=== PATIENT | male | born 1975 | race Caucasian/White ===

== ENCOUNTER 2017-02-27 19:49 | Emergency (ER) | payer BC, OTHER ==
[~2017-02-27] VITALS: Ht 177.8 cm; Wt 81.1 kg
[2017-02-27 20:00] VITALS: TEMP 36.8; Ht 177.8 cm; Wt 81.1 kg
[2017-02-27] MEDS ORDERED: ONDANSETRON INJ 2 MG/ML 2 ML VIAL IV STA (20:14)
[2017-02-27] MEDS ORDERED: MoRPHine SULFATE 4 MG/ML 1 ML CARP\\VIAL IV STA (20:14)
[2017-02-27 20:27] LABS: BASO % 0.2 %; BASO ABS # 0.04 K/uL (0-0.2); COMPLETE YES; EOS % 0.6 %; HEMATOCRIT 47.4 % (42-52); IG% 1.1 %; LYMPH % 7.5 %; LYMPH ABS # 1.52 K/uL (1.2-3.4); MEAN CELL VOLUME 89.6 fL (80-100); MEAN CORPUSCULAR HEMOGLOBIN 29.1 pg (25-34); MEAN CORPUSCULAR HGB CONC 32.5 g/dl (32-36); MEAN PLATELET VOLUME 10.7 fL (7.4-10.4); MONO % 5.3 %; NEUT % 85.3 %; PLATELET COUNT 253 K/uL (130-400); RED BLOOD COUNT 5.29 M/uL (4.7-6.1)
[2017-02-27] MEDS ORDERED: OPTIRAY 320 IV PRN (20:30)
[2017-02-27 20:35] LABS: ISTAT CREATININE 0.6 mg/dl (0.6-1.3); ISTAT HEMOGLOBIN 16.3 g/dl (14.0-18.0); ISTAT IONIZED CALCIUM 1.2 mmol/l (1.12-1.32)
[2017-02-27 20:38] LABS: INR 0.9 (0.9-1.1); PROTHROMBIN TIME (PATIENT) 9.9 SECONDS (9.0-12.0)
[2017-02-27 20:46] LABS: ALT/SGPT 29 U/L (12-78); AST/SGOT 20 U/L (15-37); BLOOD UREA NITROGEN 8 mg/dl (7-18); BUN/CREATININE RATIO 10.3 (10-20); CALCIUM 8.9 mg/dl (8.5-10.1); CARBON DIOXIDE 28 mmol/L (21-32); CHLORIDE 107 mmol/L (98-107); CREATININE 0.76 mg/dl (0.60-1.40); GLUCOSE 109 mg/dl (70-99); POTASSIUM 4.2 mmol/L (3.5-5.1); SODIUM 141 mmol/L (136-145)
[2017-02-27 20:50] LABS: ALKALINE PHOSPHATASE 99 U/L (45-117)
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
[2017-02-27] MEDS ORDERED: OXYC1TAB3 PO (21:41)
[2017-02-27] MEDS ORDERED: OXYCODONE IR HOME PACK PO ONE (21:45)
[2017-02-27] MEDS ORDERED: MoRPHine SULFATE 2 MG/ML CARP IV STA (21:50)
[2017-02-27 22:00] VITALS: BP 166/96; PULSE 80; O2SAT 97
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
== END 2017-02-27 22:18 | disposition home or self-care (01) ==
LOC: C.EDB 19:50
DX: S12.9XXA Fracture of neck, unspecified, initial encounter (principal); S22.32XA Fracture of one rib, left side, initial encounter for closed fracture; D72.829 Elevated white blood cell count, unspecified; V86.59XA Driver of other special all-terrain or other off-road motor vehicle injured in nontraffic accident, initial encounter; Z82.49 Family history of ischemic heart disease and other diseases of the circulatory system; F17.200 Nicotine dependence, unspecified, uncomplicated

== ENCOUNTER 2023-02-25 16:51 | Inpatient (IN) ==
[2023-02-25 17:23] LABS: Basophils # (auto) 0.07 K/uL (0-0.2); Basophils % (auto) 0.4 %; Eosinophils # (auto) 0.19 K/uL (0-0.50); Eosinophils % (auto) 1.2 %; Hematocrit (blood only) 50.6 % (42.0-52.0); Hemoglobin 17.4 g/dl (14.0-18.0); Immature Granulocytes # (auto) 0.23 K/uL (0.01-0.20); Immature Granulocytes % (auto) 1.5 %; Lymphocytes # (auto) 2.07 K/uL (1.2-3.4); Lymphocytes % (auto) 13.1 %; Mean Corpuscular Hemoglobin 30.1 pg (25.0-34.0); Mean Corpuscular Hgb Conc 34.4 g/dL (32.0-36.0); Mean Corpuscular Volume 87.4 fL (80.0-100.0); Mean Platelet Volume 10.9 fL (9.4-12.4); Monocytes # (auto) 1.31 K/uL (0.11-0.59); Monocytes % (auto) 8.3 %; Neutrophils # (auto) 11.91 K/uL (1.40-6.50); Neutrophils % (auto) 75.5 %; Platelet Count 239 K/uL (130-400); RDW Coefficient of Variation 12.7 % (11.5-14.5); RDW Standard Deviation 40.7 fL (36.4-46.3); Red Blood Count 5.79 M/uL (4.70-6.10); White Blood Count 15.78 K/ul (4.8-10.8)
[2023-02-25 17:38] LABS: Albumin Globulin Ratio 1.4 (0.9-2); Albumin Level 4.4 gm/dl (3.4-5.0); BUN Creatinine Ratio 9.1 (10-20); Bilirubin,Total 0.6 mg/dl (0.2-1.0); Calcium 10.3 mg/dl (8.6-10.3); Creatinine Clr Calc Pharmacy 123.9 ml/min; Est GFR (African American) 119.4 ml/min; Globulin 3.2 gm/dl (2.5-4.0); Potassium 3.8 mmol/L (3.5-5.1); Total Protein 7.6 gm/dl (6.0-8.3)
--- NOTE | 2023-02-25 17:59 | Emergency Department Note ---
Impression & Plan Diverticulitis, Leukocytosis, Abscess of abdominal cavity ED Provider Note NAME: BETY ROSARIO AGE: 47 SEX: M : 1975 ARRIVES VIA: Walk-In INFORMANT: Patient ED PROVIDER(S): Mehrdad Alfaro DO CHIEF COMPLAINT: abdominal pain HPI: Patient is a 47-year-old male who presents ER for left lower quadrant abdominal pain which started 1 week ago. Denies any headache or change in vision. No chest pain or shortness of breath. Pain is worse with twisting, turning, and bending. Laying flat does improve the pain and movement makes it worse. He notes he has had epiploic appendagitis before and it feels similar but different. No previous abdominal surgeries. PAST MEDICAL HISTORY:See Below PAST SURGICAL HISTORY:See Below FAMILY HISTORY:See Below SOCIAL HISTORY:See Below HOME MEDICATIONS:See Below ALLERGIES:See Below VITALS:See Below PHYSICAL EXAMINATION: GENERAL: Sitting up in bed, alert, well appearing, well nourished, no distress, non-toxic EYE EXAM: normal conjunctiva. OROPHARYNX: no exudate, no erythema, lips, buccal mucosa, and tongue normal and mucous membranes are moist NECK: supple, no nuchal rigidity, no adenopathy, non-tender LUNGS: Clear to auscultation. Normal chest wall mechanics HEART: no murmurs, S1 normal and S2 normal ABDOMEN: abdomen soft, TTP in LLQ, normo-active bowel sounds, no masses, no rebound or guarding. UPPER EXTREMITIES: upper extremities are grossly normal. LOWER EXTREMITIES: No pitting edema. NEURO EXAM: Normal sensorium, cranial nerves II-XII grossly intact, normal speech, no gross weakness of arms, no gross weakness of legs. MEDICAL DECISION MAKING: Patient is a 47-year-old male who presents ER for left lower quadrant abdominal pain. IV was established blood work was obtained. External records were reviewed. Labs show leukocytosis of 15,000. No significant anemia. BMP with LFTs bilirubin lipase is unremarkable. UA was clean. COVID-negative. CT abdomen pelvis shows diverticulitis with a 3 x 1.6 cm abscess in the left lower quadrant. Discussed with Dr. Nance and he notes that this is not amenable to IR due to the small size. Discussed with the hospitalist Dr. Travis for admission and further evaluation. Patient was given fluids, morphine and Zosyn. Patient was updated bedside. Also discussed with Dr. Pedroza from general surgery and again she recommends admission to the hospitalist and they will follow. Triage Nursing notes reviewed. Limited review of prior medical records performed Vital Signs: reviewed and remarkable for no significant abnormalities Differential diagnosis: Differential diagnoses includes but is not limited to gastritis, peptic ulcer disease, GERD, gallbladder disease, pancreatitis, small bowel obstruction, appendicitis, diverticulitis, hernia, urinary tract infection, torsion, /ectopic (if female), perforation, trauma, infectious. ER treatment provided: See below Diagnostics interpreted by me include EKG and cardiac monitoring as listed below: -Cardiac Monitoring: An order was placed for continuous cardiac monitoring. The monitor shows a rate of 90 with sinus rhythm. -ECG: none -Laboratory studies:Interpreted by me as stated above in MDM and shown below. Imaging studies: Xrays: As interpreted by me:none CTs show: CT abdomen pelvis shows diverticulitis with a abscess CT abdomen pelvis per my read shows inflammation in the left lower quadrant Consultation(s): As described in MDM Procedures:none Critical Care: None Past Med/Surg History Medical History Hypertension Personal history of retained foreign body fully removed piece of metal in right hand removed Surgical History Hx of tooth extraction upper teeth removed Hx of wisdom tooth extraction Family History Father Diabetes Mother Diabetes Sister Colon cancer Social History Smoking Status: Current every day smoker Tobacco Type: Cigarettes Cigarettes Per Day: 1-2 per day; Second Hand Exposure: No; Do You Dip or Chew Tobacco: No; Hx Alcohol Use: Yes Alcohol type: beer Hx Substance Use: No Preferred Language: Telugu Communication Ability: Effective Block Mechanic Required: No Beliefs That Will Affect Care: None Current Living Situation: Family and Significant Other Current Living Situation Comment: S/O and 2 children Feels Safe at Home: Yes Assistive Devices: Contacts and Denture - Upper Allergies Allergies Allergy/AdvReac Type Severity Reaction Status Date / Time No Known Allergies Allergy Mild Verified 02/25/23 20:17 Home Meds Home Medications Medication Instructions Recorded Confirmed amlodipine 5 mg tablet 5 mg PO QPM 07/01/22 02/25/23 Results & Data (ED) Vital Signs Vital Signs - 24 hr 02/25/23 16:55 02/25/23 20:17 02/25/23 20:23 Temperature 36.4 C L 36.8 C Temperature Source Skin Oral Pulse Rate 112 H 97 H Pulse Rate [Right Finger] 98 H Respiratory Rate 20 18 Respiratory Effort / Characteristics Non-Labored Spontaneous Non-Labored Spontaneous Respiratory Depth Normal Normal Respiratory Pattern Regular Regular Blood Pressure 165/99 H Blood Pressure [Left Arm] 145/94 H Blood Pressure Mean 121 Blood Pressure Mean [Left Arm] 111 Blood Pressure Position [Left Arm] Lying Pulse Oximetry 95 95 Oxygen Delivery Method Room Air Room Air Sepsis Recent Fever Within 48 Hours No Sepsis New/Unexplained Change in Mental Status N/A Sepsis Action Taken by Nursing No Action Required 02/25/23 22:24 Temperature 36.6 C Temperature Source Oral Pulse Rate Pulse Rate [Right Finger] 90 Respiratory Rate 18 Respiratory Effort / Characteristics Non-Labored Spontaneous Respiratory Depth Respiratory Pattern Blood Pressure Blood Pressure [Left Arm] 144/77 H Blood Pressure Mean Blood Pressure Mean [Left Arm] 99 Blood Pressure Position [Left Arm] Lying Pulse Oximetry 95 Oxygen Delivery Method Room Air Sepsis Recent Fever Within 48 Hours Sepsis New/Unexplained Change in Mental Status Sepsis Action Taken by Nursing Laboratory Data 02/25/23 17:03 02/25/23 17:03 Lab Results 02/25/23 02/25/23 02/25/23 Range/Units 17:03 17:03 18:49 WBC 15.78 H (4.8-10.8) K/ul RBC 5.79 (4.70-6.10) M/uL Hgb 17.4 (14.0-18.0) g/dl Hct 50.6 (42.0-52.0) % MCV 87.4 (80.0-100.0) fL MCH 30.1 (25.0-34.0) pg MCHC 34.4 (32.0-36.0) g/dL RDW Std Deviation 40.7 (36.4-46.3) fL RDW Coeff of Ebar 12.7 (11.5-14.5) % Plt Count 239 (130-400) K/uL MPV 10.9 (9.4-12.4) fL Immature Gran % (Auto) 1.5 % Neut % (Auto) 75.5 % Lymph % (Auto) 13.1 % [place] % (Auto) 8.3 % Eos % (Auto) 1.2 % Baso % (Auto) 0.4 % Neut # (Auto) 11.91 H (1.40-6.50) K/uL Lymph # (Auto) 2.07 (1.2-3.4) K/uL [place] # (Auto) 1.31 H (0.11-0.59) K/uL Eos # (Auto) 0.19 (0-0.50) K/uL Baso # (Auto) 0.07 (0-0.2) K/uL Immature Gran # (Auto) 0.23 H (0.01-0.20) K/uL Sodium 136 (136-145) mmol/L Potassium 3.8 (3.5-5.1) mmol/L Chloride 104 (98-107) mmol/L Carbon Dioxide 24 (21-32) mmol/L Anion Gap 8 (3-11) BUN 8 (6-23) mg/dl Creatinine 0.88 (0.6-1.4) mg/dl Est Cr Clr Drug Dosing 123.9 ml/min Est GFR ( Amer) 119.4 ml/min Est GFR (Non-Af Amer) 103.0 ml/min BUN/Creatinine Ratio 9.1 L (10-20) Glucose 112 H (70-99(Fasting)) mg/dl Calcium 10.3 (8.6-10.3) mg/dl Total Bilirubin 0.6 (0.2-1.0) mg/dl AST 13 (13-39) U/L ALT 28 (7-52) U/L Alkaline Phosphatase 89 (34-104) U/L Total Protein 7.6 (6.0-8.3) gm/dl Albumin 4.4 (3.4-5.0) gm/dl Globulin 3.2 (2.5-4.0) gm/dl Albumin/Globulin Ratio 1.4 (0.9-2) Lipase 18 (11-82) U/L Urine Color Dark Yellow Urine Appearance Clear (Clear) Urine pH 6.0 (4.5-7.5) Ur Specific [place] 1.024 (1.000-1.030) Urine Protein Negative (Negative) Urine Glucose (UA) Negative (Negative) Urine Ketones Trace H (Negative) Urine Blood Negative (Negative) Urine Nitrite Negative (Negative) Urine Bilirubin Negative (Negative) Urine Urobilinogen Negative (Negative) Ur Leukocyte Esterase Negative (Negative) SARS-CoV-2, RNA, NAAT (NEGATIVE) 02/25/23 Range/Units 20:27 WBC (4.8-10.8) K/ul RBC (4.70-6.10) M/uL Hgb (14.0-18.0) g/dl Hct (42.0-52.0) % MCV (80.0-100.0) fL MCH (25.0-34.0) pg MCHC (32.0-36.0) g/dL RDW Std Deviation (36.4-46.3) fL RDW Coeff of Bear (11.5-14.5) % Plt Count (130-400) K/uL MPV (9.4-12.4) fL Immature Gran % (Auto) % Neut % (Auto) % Lymph % (Auto) % [place] % (Auto) % Eos % (Auto) % Baso % (Auto) % Neut # (Auto) (1.40-6.50) K/uL Lymph # (Auto) (1.2-3.4) K/uL [place] # (Auto) (0.11-0.59) K/uL Eos # (Auto) (0-0.50) K/uL Baso # (Auto) (0-0.2) K/uL Immature Gran # (Auto) (0.01-0.20) K/uL Sodium (136-145) mmol/L Potassium (3.5-5.1) mmol/L Chloride (98-107) mmol/L Carbon Dioxide (21-32) mmol/L Anion Gap (3-11) BUN (6-23) mg/dl Creatinine (0.6-1.4) mg/dl Est Cr Clr Drug Dosing ml/min Est GFR ( Amer) ml/min Est GFR (Non-Af Amer) ml/min BUN/Creatinine Ratio (10-20) Glucose (70-99(Fasting)) mg/dl Calcium (8.6-10.3) mg/dl Total Bilirubin (0.2-1.0) mg/dl AST (13-39) U/L ALT (7-52) U/L Alkaline Phosphatase (34-104) U/L Total Protein (6.0-8.3) gm/dl Albumin (3.4-5.0) gm/dl Globulin (2.5-4.0) gm/dl Albumin/Globulin Ratio (0.9-2) Lipase (11-82) U/L Urine Color Urine Appearance (Clear) Urine pH (4.5-7.5) Ur Specific [place] (1.000-1.030) Urine Protein (Negative) Urine Glucose (UA) (Negative) Urine Ketones (Negative) Urine Blood (Negative) Urine Nitrite (Negative) Urine Bilirubin (Negative) Urine Urobilinogen (Negative) Ur Leukocyte Esterase (Negative) SARS-CoV-2, RNA, NAAT NEGATIVE (NEGATIVE) Administered Medications Discontinued Medications Piperacillin Sod/Tazobactam Sod (Zosyn) 4.5 gm in 120 mls @ 240 mls/hr IV NOW ONE Stop: 02/25/23 20:27 Last Admin: 02/25/23 20:19 Dose: 240 mls/hr Documented By: SG Sodium Chloride (Nss 1000ml) 2,000 mls @ 999 mls/hr IV .Q2H1M ONE Stop: 02/25/23 22:07 Last Admin: 02/25/23 20:19 Dose: 999 mls/hr Documented By: SG Ioversol (Optiray 320 100ml) 94 ml IV ONCE ONE Stop: 02/25/23 19:00 Last Admin: 02/25/23 18:59 Dose: 94 ml Documented By: EDK Morphine Sulfate (Morphine Sulfate 10 Mg/Ml Carp/Vial) 6 mg IV NOW STA Stop: 02/25/23 19:59 Last Admin: 02/25/23 20:19 Dose: 6 mg Documented By: SG Imaging Data Radiologist's Impression: Abdomen/Pelvis CT 02/25/23 17:[address] WITH IV CONTRAST CT DOSE: 1091.77 mGy.cm HISTORY: Left lower quadrant abdominal pain. TECHNIQUE: Multiaxial CT images of the abdomen and pelvis were performed following the use of intravenous contrast. A dose lowering technique was utilized adhering to the principles of ALARA. COMPARISON STUDY: Abdomen and pelvis CT 06/03/2022. FINDINGS: The lung bases are clear. No acute fractures identified. There is a tiny fat-containing umbilical hernia. Hepatic steatosis again noted. There are 2 subcentimeter hypodense lesions within the left hepatic lobe. These are technically too small to characterize but favor cysts. The gallbladder, pancreas, spleen, and adrenal glands are unremarkable. The main portal vein is patent. Normal caliber abdominal aorta. No retroperitoneal or pelvic lymphadenopathy. A 3 mm hypodense lesion within the upper pole of the right kidney is also too small to characterize but statistically represents a cyst. The left kidney enhances normally. No hydronephrosis. Normal bladder. Trace pelvic free fluid. Focal thickening within the proximal to mid sigmoid colon with pericolonic fat stranding consistent with an acute diverticulitis. There is also a small focus of extraluminal gas and fluid adjacent to the area of thickened sigmoid colon best seen on image 294. This measures approximately 3.0 x 1.6 cm and is consistent with a small developing pericolonic abscess. This is not amenable to percutaneous drainage at this time. Multiple additional colonic diverticula are noted. No dilated loops of bowel to suggest an obstruction. Normal appendix. IMPRESSION: 1. Acute sigmoid diverticulitis with a 3.0 x 1.6 cm developing pericolonic abscess. 2. Follow-up colonoscopy should be considered once the diverticulitis has resolved to exclude the less likely possibility of an underlying colonic lesion. 3. Mild hepatic steatosis. ACT 112: Negative or not required by law. Electronically signed by: Ghassan Brooks M.D. 02/25/2023 7:38 PM Discharge Plan Visit Data Chief Complaint: Abdominal Pain Stated Complaint: ABDOMINAL PAIN ED Provider: Mehrdad Alfaro Discharge Problem: Diverticulitis, Leukocytosis, Abscess of abdominal cavity Forms Stand Alone Forms: My [facility] [employer] Prescriptions Prescriptions: No Action amlodipine 5 mg Tablet 5 mg PO QPM Referrals Referrals: Casandra Cm MD [Primary Care Provider] -
[2023-02-25] MEDS ORDERED: OPTIRAY 320 500ml IV ONE (18:58)
[2023-02-25] MEDS ORDERED: OPTIRAY 320 100ml IV ONE (18:59)
[2023-02-25 19:23] LABS: Appearance Urine Clear (Clear); Bilirubin Urine Negative (Negative); Blood Urine Negative (Negative); Color Urine Dark Yellow; Glucose Urine UA Negative (Negative); Ketones Urine Trace (Negative); Leukocyte Esterase Urine Negative (Negative); Nitrite Urine Negative (Negative); Protein Urine Negative (Negative); Specific Gravity Urine 1.024 (1.000-1.030); Urobilinogen Urine Negative (Negative)
--- NOTE | 2023-02-25 19:40 | CT Scan Report ---
ABDOMEN AND PELVIS CT WITH IV CONTRAST CT DOSE: 1091.77 mGy.cm HISTORY: Left lower quadrant abdominal pain. TECHNIQUE: Multiaxial CT images of the abdomen and pelvis were performed following the use of intrave nous contrast. A dose lowering technique was utilized adhering to the principles of ALARA. COMPARISON STUDY: Abdomen and pelvis CT 06/03/2022. FINDINGS: The lung bases are clear. No acute fractures identified. There is a tiny fat-containing umb ilical hernia. Hepatic steatosis again noted. There are 2 subcentimeter hypodense lesions within the left hepatic lobe. These are technically too small to characterize but favor cysts. The gallbladder, pancreas, spleen, and adrenal glands are unremarkable. The main portal vein is patent. Normal caliber abdominal aorta. No retroperitoneal or pelvic lymphadenopathy. A 3 mm hypodense lesion within the up per pole of the right kidney is also too small to characterize but statistically represents a cyst. T he left kidney enhances normally. No hydronephrosis. Normal bladder. Trace pelvic free fluid. Focal t hickening within the proximal to mid sigmoid colon with pericolonic fat stranding consistent with an acute diverticulitis. There is also a small focus of extraluminal gas and fluid adjacent to the area of thickened sigmoid colon best seen on image 294. This measures approximately 3.0 x 1.6 cm and is co nsistent with a small developing pericolonic abscess. This is not amenable to percutaneous drainage a t this time. Multiple additional colonic diverticula are noted. No dilated loops of bowel to suggest an obstruction. Normal appendix. IMPRESSION: 1. Acute sigmoid diverticulitis with a 3.0 x 1.6 cm developing pericolonic abscess. 2. Follow-up colonoscopy should be considered once the diverticulitis has resolved to exclude the les s likely possibility of an underlying colonic lesion. 3. Mild hepatic steatosis. ACT 112: Negative or not required by law. Electronically signed by: Ghassan Brooks M.D. 02/25/2023 7:38 PM
[2023-02-25] MEDS ORDERED: MoRPHine SULFATE 10 MG/ML CARP/VIAL IV STA (19:58)
[2023-02-25] MEDS ORDERED: PIPERACILLIN/TAZOBACTAM 4.5 GM/120 ML BAG IV ONE (19:58)
[2023-02-25] MEDS ORDERED: SODIUM CHLORIDE 0.9% 1000ML 2,000 ML IV ONE (20:07)
--- NOTE | 2023-02-25 21:16 | Surgery Consultation ---
This case was discussed with the surgical PA. I agreed with the plan. Date of Consultation February 25, 2023 Assessment & Plan (1) Diverticulitis: The patient is being admitted on the hospitalist service. From a surgical perspective we recommend proceeding as follows: Provide analgesics Provide antiemetics Provide IV fluid for hydration Provide antibiotics. Zosyn has been initiated by the treating emergency room physician and would recommend continuing this antibiotic. Implement n.p.o. status. I do feel be acceptable for patient to have an occasional ice chip for comfort. I discussed with the patient the rationale for bowel rest. I did discuss with him the consideration will be given to advancing his diet, beginning with clear liquids, once his abdominal exam improves and he has improved bowel function. Follow serial labs I discussed the above conservative treatment plan with the patient. I did discuss with him that would be preferable to avoid an emergency operation and this would most likely require a colostomy. I discussed with him that we would like to cool his infection off and if surgery is to be considered in the future would be preferable if he would have an up-to-date colonoscopy and an adequate bowel prep prior to doing so. I did discuss with him also that he may not require surgical intervention at any point as this is the first episode of diverticulitis. Repeat imaging can be considered if patient shows signs of clinical deterioration Appropriate DVT prophylaxis can be initiated. We will defer this to the admitting service. Additional recommendations be forthcoming based on his clinical course as unfolds History of Present Illness Reason for Consultation: Diverticulitis History of Present Illness This is a 47-year-old male who presented to the emergency department secondary to abdominal pain. The patient notes that he has been having pain which is greatest in the left lower quadrant for approximately 1 week. He notes that over the past week the pain has begun to spread across his lower abdomen in a bandlike fashion. He denies any other mitigating factors concerning his pain. He has had nausea without vomiting and notes a poor appetite. He has felt feverish but admits he did not take his temperature and he has had some occasional sweats and chills. He notes that he has never had abdominal surgery in the past and he has never had issues with diverticulitis in the past. The patient has had a colonoscopy in the past, most recently in July 2022. This procedure revealed a 2 mm polyp which was removed. He was also noted to have nonbleeding internal hemorrhoids. There is no comment on any diverticular disease on the study. Which independent reviewed. CT scan of the abdomen pelvis showed that patient had acute sigmoid diverticulitis with a 3.0 x 1.6 cm developing pericolonic abscess. The interpreting radiologist felt that this was not amendable to any type of percutaneous drainage at the current time. There is no evidence of bowel obstruction or appendicitis. Labs included a CBC her white blood cell count was elevated at 15.7. Hemoglobin, hematocrit, and platelet count were normal. Chemistry profile showed sodium, potassium, BUN, and creatinine were normal. Urinalysis was not indicative of infection and a COVID test was negative. At the time of my interview the patient was resting comfortably in bed he was in no distress. Allergies Allergy/AdvReac Type Severity Reaction Status Date / Time No Known Allergies Allergy Mild Verified 02/25/23 20:17 Home Medications Medication Instructions Recorded Confirmed Type amlodipine 5 mg tablet 5 mg PO QPM 07/01/22 02/25/23 History Patient History Medical History Hypertension Personal history of retained foreign body fully removed piece of metal in right hand removed Surgical History Hx of tooth extraction upper teeth removed Hx of wisdom tooth extraction Family History Father Diabetes Mother Diabetes Sister Colon cancer Social History Smoking Status: Current every day smoker Tobacco Type: Cigarettes Cigarettes Per Day: 1-2 per day; Second Hand Exposure: No; Do You Dip or Chew Tobacco: No; Hx Alcohol Use: Yes Alcohol type: beer Hx Substance Use: No Preferred Language: Azeri Communication Ability: Effective Business Programmer Required: No Beliefs That Will Affect Care: None Current Living Situation: Family and Significant Other Current Living Situation Comment: S/O and 2 children Feels Safe at Home: Yes Assistive Devices: Contacts and Denture - Upper Review of Systems Constitutional: + fever (Subjective) and + chills Ear, Nose, Mouth, Throat: see below and no ear pain Respiratory: no cough and no dyspnea Cardiovascular: no chest pain Gastrointestinal: as per Subjective / HPI Genitourinary: no dysuria Musculoskeletal: no back pain Integumentary: no rash Neurologic: no localized weakness Physical Exam Constitutional: WD/WN, vitals as above Eyes: no conjunctival abnormality ENMT: Ears: no hearing impairment and no external ear abnormality Mouth: no oropharynx abnormality Neck: trachea midline Respiratory: normal respiratory effort, lungs clear to auscultation Cardiovascular: Rate/Rhythm: regular rate and regular rhythm Vessels: dorsalis pedis pulses present and radial pulses present Gastrointestinal (Abdomen): Abdomen is soft and nonrigid. There is minimal distention. Bowel sounds are hypoactive. Patient did have pain with palpation which is greatest in the left lower quadrant with some slight rebound tenderness. Musculoskeletal: No calf tenderness Skin: no rashes Neurologic: moves all extremities Psychiatric: A+Ox3, euthymic affect Results & Data Vital Signs (Past 12 Hours) Vital Signs Temp Pulse Pulse Resp BP BP Pulse Ox 02/25/23 20:23 97 H 02/25/23 20:17 36.8 C 98 H 18 145/94 H 95 02/25/23 16:55 36.4 C L 112 H 20 165/99 H 95 O2 Del Method 02/25/23 20:23 02/25/23 20:17 Room Air 02/25/23 16:55 Room Air PG Care Time/CCT Total # of Minutes Spent Total Time Spent with Patient: Total time spent is greater than 50% in coordination of care (as documented) at patient's floor/unit and/or counseling patient: Coding Level of Care Code 10753 IN/OBS CONSULT LVL 5,80M Diagnoses Diverticulitis K57.92
--- NOTE | 2023-02-25 22:26 | History & Physical Report ---
Date of Service February 25, 2023 Assessment & Plan (1) Diverticulitis: Plan: -Acute sigmoid diverticulitis, complicated by pericolonic abscess 3.0 x 1.6 cm -Per radiology, not amenable to percutaneous drainage at present -Currently hemodynamically stable, not meeting SIRS criteria on admission -IVF- LR 125 cc/hr -Pain control- Toradol PRN, morphine PRN -Zofran PRN -Continue Zosyn at present -Serial abdominal exams, advance diet as tolerated -Trend CBC, BMP -General surgery consulted, recommendations appreciated -Continue conservative management at present (2) Hypertension: Plan: -BP stable at present, suspect mild elevation driven by abdominal pain -Holding home amlodipine for NPO status (3) Constipation: Plan: -Avoiding laxatives at present due to acute diverticulitis -Consider initiation of bowel regimen as pt's acute flare resolves Plan FENGI: NPO except sips/chips Code status: Full DVT ppx: SCDs Isolation: None Dispo: Medical/surgical History of Present Illness Chief Complaint: Abdominal pain Primary Care Provider: Casandra Cm MD Pt is 47 yo M with significant FMH of diverticulitis, PMH colonic polyp, HTN presenting with abdominal pain. Pt reports onset of LLQ abdominal pain 1 week prior which has spread across abdomen to RLQ and worsened in severity since onset. Associated nausea without emesis, though reduced PO intake. Reports subjective fevers and chills. States he has not had a BM in over 1 week. He does report history of diverticulitis in multiple family members and did have colonic polyp removed on colonoscopy in 07/2022. Pt arrived to ER hemodynamically stable. Initial evaluation significant for WBC 16, CTAP with sigmoid diverticulitis and noted 3.0 x 1.6 cm pericolonic abscess. ER interventions include Zosyn, morphine 6 mg IV, 1L NSS bolus x2. At present, pt reports ongoing abdominal pain with some relief from PRN medication. Denies any other complaints. Allergies Allergy/AdvReac Type Severity Reaction Status Date / Time No Known Allergies Allergy Mild Verified 02/25/23 20:17 Home Medications Medication Instructions Recorded Confirmed Type amlodipine 5 mg tablet 5 mg PO QPM 07/01/22 02/25/23 History Past Med/Surg History Medical History (Updated 02/25/23 @ 22:37 by Georgia Bose MD) Hypertension Personal history of retained foreign body fully removed piece of metal in right hand removed Surgical History Hx of tooth extraction upper teeth removed Hx of wisdom tooth extraction Family History Father Diabetes Mother Diabetes Sister Colon cancer Social History Smoking Status: Current every day smoker Tobacco Type: Cigarettes Cigarettes Per Day: 1-2 per day; Second Hand Exposure: No; Do You Dip or Chew Tobacco: No; Hx Alcohol Use: Yes Alcohol type: beer Hx Substance Use: No Preferred Language: Zambian Communication Ability: Effective Lip Cutter And Scorer Required: No Beliefs That Will Affect Care: None Current Living Situation: Family and Significant Other Current Living Situation Comment: S/O and 2 children Feels Safe at Home: Yes Assistive Devices: Contacts and Denture - Upper Review of Systems Review of Systems: Per HPI Physical Exam Physical Exam: General: well-appearing, no acute distress HEENT: PERRL, EOMI, conjunctivae clear without injection, anicteric sclerae, moist mucous membranes, clear oropharynx without exudate or erythema Neck: supple, trachea midline, no thyromegaly, no JVD, no cervical lymphadenopathy CV: RRR, normal S1 and S2, no murmurs Resp: CTAB, no increased work of breathing, no crackles or wheezes Abd: Soft, +tender from RLQ/infraumbilical and LLQ (greatest), nondistended, no guarding or rebound, no hepatosplenomegaly, normal bowel sounds MSK: Normal bulk of all four extremities Neuro: AOx3, no focal motor or sensory deficits Skin: no rashes or lesions, warm and dry Ext: no LE peripheral edema or erythema, capillary refill <2s in all four extremities, 2+ LE peripheral pulses b/l Results & Data Results & Data Vital Signs (Past 12 Hours) Vital Signs Temp Pulse Pulse Resp BP BP Pulse Ox 02/25/23 22:24 36.6 C 90 18 144/77 H 95 02/25/23 20:23 97 H 02/25/23 20:17 36.8 C 98 H 18 145/94 H 95 02/25/23 16:55 36.4 C L 112 H 20 165/99 H 95 O2 Del Method 02/25/23 22:24 Room Air 02/25/23 20:23 02/25/23 20:17 Room Air 02/25/23 16:55 Room Air Code Status & VTE Plan VTE Prophylaxis Plan VTE Prophylaxis will be ordered: Yes Resident Activity Tracking Resident Involvement: Resident Care Provided Care Provided: Adult Hospital Medicine
[2023-02-25] MEDS ORDERED: ONDANSETRON INJ 2 MG/ML 2 ML VIAL IV PRN (23:46)
[2023-02-26] MEDS: MoRPHine SULFATE 2 MG/ML CARP IV PRN ×3 (00:30→14:46)
[2023-02-26] MEDS: LACTATED RINGER'S 1,000 ML IV SCH ×3 (00:30→16:09)
[2023-02-26] MEDS: PIPERACILLIN/TAZOBACTAM 4.5 GM in DEXTROSE 5% 100 ML IV SCH ×3 (01:46→17:36)
--- NOTE | 2023-02-26 06:09 | Surgery Progress Note ---
I have seen and examined this patient with the surgical PA this am. He does not have a surgical abdomen, his leukocytosis is resolving and he is afebrile. I agree with the plan. Date of Service February 26, 2023 Assessment & Plan (1) Diverticulitis: Plan: Patient has been admitted on the hospitalist service. From a surgical perspective we recommend continuing plan as follows: Continue analgesics Continue antiemetics Continue broad-spectrum antibiotics in the form of Zosyn Continue n.p.o. status. I discussed with the patient that consideration be given to advancing his diet beginning with clear liquids once he has improvement of his abdominal exam and improvement of his bowel function. Encourage ambulation Check a.m. labs when available Admission and Anticipated Discharge Date Admission Date: February 25, 2023 Subjective Patient is resting in bed at the time of my interview. He notes that since admission he feels about the same. He continues to have left lower quadrant pain. He has not had any nausea or vomiting since admission. He is passing a small amount of flatus but is not had any bowel movement. He does note that he feels hungry. He has not had any fevers but has had some occasional sweats. Physical Exam Gastrointestinal (Abdomen): Bowel sounds are hypoactive. Patient's abdomen is soft and nonrigid. Patient does have pain with palpation in the left lower quadrant. Results & Data Vital Signs (Past 12 Hours) Vital Signs Temp Pulse Pulse Resp BP Pulse Ox O2 Del Method 02/25/23 23:37 16 02/25/23 23:54 36.5 C 99 H 18 154/77 H 94 Room Air 02/25/23 22:24 36.6 C 90 18 144/77 H 95 Room Air 02/25/23 20:23 97 H 02/25/23 20:17 36.8 C 98 H 18 145/94 H 95 Room Air PG Care Time/CCT Total # of Minutes Spent Total Time Spent with Patient: Total time spent is greater than 50% in coordination of care (as documented) at patient's floor/unit and/or counseling patient: Coding Level of Care Code 17385 SUB INP/OBS CARE Diagnoses Diverticulitis K57.92
[2023-02-26] MEDS: KETOROLAC TROMETHAMINE 15 MG/ML VIAL IV PRN ×2 (06:22→16:12)
--- NOTE | 2023-02-26 06:58 | Electrocardiogram Report ---
Test Reason : Blood Pressure : / mmHG Vent. Rate : 102 BPM Atrial Rate : 102 BPM P-R Int : 172 ms QRS Dur : 086 ms QT Int : 324 ms P-R-T Axes : 039 005 036 degrees QTc Int : 422 ms Sinus tachycardia Poor R wave progression, consider anterior AL vs. lead placement vs. LVH Otherwise normal ECG When compared with ECG of 29-JUN-2020 15:59, No significant change was found Confirmed by Calixto Fleming ([id number]) on 02/26/2023 6:57:52 AM Referred By: REFERRED SELF Confirmed By:Tong Fleming
[2023-02-26 07:37] LABS: Basophils # (auto) 0.04 K/uL (0-0.2); Basophils % (auto) 0.3 %; Eosinophils # (auto) 0.15 K/uL (0-0.50); Eosinophils % (auto) 1.1 %; Hematocrit (blood only) 44.1 % (42.0-52.0); Immature Granulocytes # (auto) 0.08 K/uL (0.01-0.20); Immature Granulocytes % (auto) 0.6 %; Lymphocytes # (auto) 1.31 K/uL (1.2-3.4); Lymphocytes % (auto) 9.7 %; Mean Corpuscular Hemoglobin 29.7 pg (25.0-34.0); Mean Corpuscular Volume 87.3 fL (80.0-100.0); Mean Platelet Volume 11.4 fL (9.4-12.4); Monocytes # (auto) 1.63 K/uL (0.11-0.59); Monocytes % (auto) 12.1 %; Neutrophils # (auto) 10.23 K/uL (1.40-6.50); Neutrophils % (auto) 76.2 %; Platelet Count 220 K/uL (130-400); RDW Coefficient of Variation 12.8 % (11.5-14.5); RDW Standard Deviation 40.9 fL (36.4-46.3); Red Blood Count 5.05 M/uL (4.70-6.10); White Blood Count 13.44 K/ul (4.8-10.8)
[2023-02-26 07:45] LABS: BUN Creatinine Ratio 9.4 (10-20); Calcium 9.2 mg/dl (8.6-10.3); Creatinine Clr Calc Pharmacy 129.2 ml/min; Est GFR (African American) 121.1 ml/min; Est GFR (Non-African American) 104.5 ml/min; Potassium 3.7 mmol/L (3.5-5.1)
--- NOTE | 2023-02-26 07:47 | Hospitalist Progress Note ---
Date of Service February 26, 2023 Assessment & Plan (1) Diverticulitis: Plan: -Acute sigmoid diverticulitis, complicated by pericolonic abscess 3.0 x 1.6 cm, will need outpaitwent f/u with GI with consideration for repat -Per radiology, not amenable to percutaneous drainage at present - colonoscopy 07/2022 with 2mm polyp sigmoid colon -Currently hemodynamically stable, not meeting SIRS criteria on admission -IVF- LR 125 cc/hr -Pain control- Toradol PRN, morphine PRN -Zofran PRN -Continue Zosyn -Serial abdominal exams, advance diet as tolerated -Trend CBC, BMP -General surgery consulted, recommendations appreciated -Continue conservative management at present (2) Hypertension: Plan: -Well controlled -Holding home amlodipine for NPO status (3) Constipation: Plan: -Avoiding laxatives at present due to acute diverticulitis -Consider initiation of bowel regimen as pt's acute flare resolves Plan FENGI: NPO except sips/chips Code status: Full DVT ppx: SCDs Isolation: None Admission and Anticipated Discharge Date Admission Date: February 25, 2023 Supervising Physician Co-Signing Physician Notes ATTESTATION I also saw the patient and confirmed brock portions of the history and exam. I agree with the impression and plan in the resident documentation, and as summarized below. 47-year-old male admitted yesterday with acute sigmoid diverticulitis. No prior history of diverticulitis previously. Fairly recent colonoscopy completed 07/11/2022 demonstrated one small 2 mm polyp (pathology shows hyperplastic) in the sigmoid colon; no mention made of diverticulosis. Since admission, had some increased pain this morning that was relieved with morphine. Still no appetite. He has ice hips at bedside. EXAM 136/80, 84, 20, 36.7, 90% room air Alert and oriented. No distress. Heart regular Lungs clear with nonlabored respirations Abdomen soft, left lower quadrant tenderness without rebound or guarding DATA Labs White blood cell count 13.44, hemoglobin 15 Sodium 136, potassium 3.7, BUN 8, creatinine 0.[address] scan, pleated 02/25/2023 demonstrates acute sigmoid diverticulitis with a 3.0 x 1.6 cm developing pericolonic abscess. Pathology Sigmoid polyp collected 07/11/2022 demonstrates a hyperplastic polyp IMPRESSION & PLAN Acute sigmoid diverticulitis with pericolonic abscess Appreciate surgical consultation Continue empiric antibiotics IV fluids, ice chips, n.p.o. otherwise Additional per resident documentation Subjective Mark was in significant pain when I saw him this morning. States pain is the pain from when he came in. LLQ. No bowel movement in about a week. Review of Systems Review of Systems: As per above Physical Exam Physical Exam: Constitutional: well-appearing, no acute distress HEENT: NCAT, no conjunctival injection CV: regular rhythm, no murmur appreciated, extremities well-perfused, no LE edema Resp: CTABL, no wheezes/rales/rhonchi appreciated, no increased work of breathing GI: soft, nondistended, tender, worst in LLQ, BS normoactive, no rebound or guarding MSK: no gross deformities appreciated Skin: warm, dry, no rash appreciated Neuro: alert, oriented, no focal neurologic deficit appreciated Results & Data Results & Data Vital Signs (Past 12 Hours) Vital Signs Temp Pulse Pulse Resp BP Pulse Ox O2 Del Method 02/26/23 07:10 36.7 C 71 16 124/74 94 Room Air 02/25/23 23:37 16 02/25/23 23:54 36.5 C 99 H 18 154/77 H 94 Room Air 02/25/23 22:24 36.6 C 90 18 144/77 H 95 Room Air 02/25/23 20:23 97 H 02/25/23 20:17 36.8 C 98 H 18 145/94 H 95 Room Air Resident Activity Tracking Resident Involvement: Resident Care Provided Care Provided: Adult Hospital Medicine
[2023-02-26] MEDS ORDERED: MoRPHine SULFATE 2 MG/ML CARP IV STA (08:43)
[2023-02-26] MEDS: ENOXAPARIN INJ 40 MG/0.4 ML SYR SQ SCH (17:36)
[2023-02-27] MEDS: PIPERACILLIN/TAZOBACTAM 4.5 GM in DEXTROSE 5% 100 ML IV SCH ×2 (01:16→10:22)
[2023-02-27] MEDS: LACTATED RINGER'S 1,000 ML IV SCH ×2 (01:29→10:22)
--- NOTE | 2023-02-27 08:16 | Surgery Progress Note ---
I have seen and examined this patient and discussed this case with the surgical PA. I agree with the plan. He may start on clears today. We will F/U labs in the am. Date of Service February 27, 2023 Assessment & Plan (1) Diverticulitis: Plan: Patient here with diverticulitis with abscess Labs are pending this AM. Vitals are stable and patient afebrile Abdomen is soft with improving LLQ ttp. He is passing flatus If WBC continues to downtrend okay to advance to clears today Continue IV abx while in house and supportive care No acute surgical intervention indicated at this time, will follow Admission and Anticipated Discharge Date Admission Date: February 25, 2023 Subjective Patient reports feeling better and pain improving. He is passing flatus. No BM yet. No nausea/vomiting. Reports hunger Physical Exam Physical Exam: awake/alert, sitting up in chair Constitutional: no acute distress Gastrointestinal (Abdomen): Inspection/Auscultation: abdomen not distended Percussion/Palpation: + abdomen tender (improving LLQ ttp) and abdomen soft Results & Data Vital Signs (Past 12 Hours) Vital Signs Temp Pulse Resp BP Pulse Ox O2 Del Method 02/27/23 08:00 Room Air 02/27/23 07:43 37.1 C 84 16 142/84 H 95 Room Air 02/26/23 21:49 36.9 C 83 18 143/73 H 95 Room Air PG Care Time/CCT Total # of Minutes Spent Total Time Spent with Patient: Total time spent is greater than 50% in coordination of care (as documented) at patient's floor/unit and/or counseling patient: Coding Level of Care Code 05485 SUB INP/OBS CARE 11/02MIN Diagnoses Diverticulitis K57.92
[2023-02-27 09:26] LABS: Basophils # (auto) 0.05 K/uL (0-0.2); Basophils % (auto) 0.4 %; Eosinophils # (auto) 0.12 K/uL (0-0.50); Eosinophils % (auto) 1.1 %; Hematocrit (blood only) 46.1 % (42.0-52.0); Hemoglobin 15.6 g/dl (14.0-18.0); Immature Granulocytes # (auto) 0.12 K/uL (0.01-0.20); Immature Granulocytes % (auto) 1.1 %; Lymphocytes # (auto) 1.27 K/uL (1.2-3.4); Lymphocytes % (auto) 11.2 %; Mean Corpuscular Hemoglobin 29.9 pg (25.0-34.0); Mean Corpuscular Hgb Conc 33.8 g/dL (32.0-36.0); Mean Corpuscular Volume 88.5 fL (80.0-100.0); Mean Platelet Volume 10.9 fL (9.4-12.4); Monocytes # (auto) 0.86 K/uL (0.11-0.59); Monocytes % (auto) 7.6 %; Neutrophils # (auto) 8.92 K/uL (1.40-6.50); Neutrophils % (auto) 78.6 %; Platelet Count 242 K/uL (130-400); RDW Coefficient of Variation 12.5 % (11.5-14.5); RDW Standard Deviation 40.9 fL (36.4-46.3); Red Blood Count 5.21 M/uL (4.70-6.10); White Blood Count 11.34 K/ul (4.8-10.8)
[2023-02-27 09:59] LABS: Calcium 9.2 mg/dl (8.6-10.3); Creatinine Clr Calc Pharmacy 137.3 ml/min; Est GFR (African American) 124.2 ml/min; Est GFR (Non-African American) 107.1 ml/min; Potassium 3.6 mmol/L (3.5-5.1)
--- NOTE | 2023-02-27 12:37 | Hospitalist Progress Note ---
Date of Service February 27, 2023 Assessment & Plan (1) Diverticulitis: Plan: -Patient here with 1x1.6 cm pericolonic abscess due to sigmoid diverticulitis -WBC is downtrending, at 11.34 down from 13.44. -Vitals are stable and patient afebrile -Abdomen is soft with improving LLQ to palpation; passing flatus -Advance to clear diet today -Continue IV abx, analgesics, and antiemetics as needed -IV fluids at 125 cc/hr -No acute surgical intervention indicated at this time, general surgery will follow. Appreciate recommendations. (2) Hypertension: Plan: -Well controlled -Add home amlodipine (3) Constipation: Plan: -Avoiding laxatives at present due to acute diverticulitis -Consider initiation of bowel regimen as patient's acute flare resolves (4) Colon cancer screening: Plan: -last colonoscopy in Fall 2021. -Consider colonoscopy on resolution of diverticulitis symptoms. Plan FENGI: Clear liquids Code status: Full DVT ppx: SCDs Isolation: None Admission and Anticipated Discharge Date Admission Date: February 25, 2023 Supervising Physician Co-Signing Physician Notes I personally examined the patient and verified all brock points of history and exam, discussed case, and agree with decision making with Eloisa SAVAGE. Feeling better. Tolerating coffee okay. Pain much better than whenever he came in. Vitals noted, in general he is awake and alert pleasant no distress. HEENT normocephalic atraumatic mucous membranes moist. Abdomen is soft mild left lower quadrant tenderness no guarding rebound or rigidity. Diverticulitis with abscessfortunately seems to be improving on antibiotics. Advance to full liquids, continue conservative care with antibiotics, serial exams, time. Fortunately right now does not appear to require surgery. Otherwise as above Subjective Mark is feeling better and feels that his pain is improving. He is passing flatus. No bowel movements. No nausea/vomiting. Patient has increased appetite today. Physical Exam Physical Exam: awake/alert, sitting up in bed Constitutional: healthy appearing; no acute distress Eyes: no conjunctival abnormality ENMT: Ears: no hearing impairment and no external ear abnormality Mouth: no oropharynx abnormality Neck: trachea midline Respiratory: normal respiratory effort, lungs clear to auscultation Cardiovascular: Rate/Rhythm: regular rate and regular rhythm Vessels: dorsalis pedis pulses present and radial pulses present Gastrointestinal (Abdomen): Inspection/Auscultation: abdomen not distended Percussion/Palpation: + abdomen tender (LLQ pain to palpation) and abdomen soft Skin: no rashes Neurologic: moves all extremities Psychiatric: A+Ox3, euthymic affect Results & Data Results & Data Vital Signs (Past 12 Hours) Vital Signs Temp Pulse Resp BP Pulse Ox O2 Del Method 02/27/23 08:00 Room Air 02/27/23 07:43 37.1 C 84 16 142/84 H 95 Room Air
[2023-02-27] MEDS: ENOXAPARIN INJ 40 MG/0.4 ML SYR SQ SCH (17:24)
[2023-02-27] MEDS: AMPICILLIN/SULBACTAM SOD 3,000 MG in 0.9 % SODIUM CHLORIDE 100 ML IV SCH ×2 (17:26→23:29)
--- NOTE | 2023-02-27 19:04 | Billing Data ---
Date of Service February 27, 2023 Coding Level of Care Code 90294 SUB INP/OBS CARE
[2023-02-28] MEDS: AMPICILLIN/SULBACTAM SOD 3,000 MG in 0.9 % SODIUM CHLORIDE 100 ML IV SCH ×4 (05:33→22:35)
[2023-02-28 07:08] LABS: Basophils # (auto) 0.06 K/uL (0-0.2); Basophils % (auto) 0.5 %; Eosinophils # (auto) 0.15 K/uL (0-0.50); Eosinophils % (auto) 1.1 %; Hematocrit (blood only) 42.9 % (42.0-52.0); Immature Granulocytes # (auto) 0.12 K/uL (0.01-0.20); Immature Granulocytes % (auto) 0.9 %; Lymphocytes % (auto) 9.8 %; Mean Corpuscular Hemoglobin 30.2 pg (25.0-34.0); Mean Corpuscular Volume 86.5 fL (80.0-100.0); Mean Platelet Volume 10.8 fL (9.4-12.4); Monocytes # (auto) 1.56 K/uL (0.11-0.59); Monocytes % (auto) 11.8 %; Neutrophils # (auto) 10.06 K/uL (1.40-6.50); Neutrophils % (auto) 75.9 %; Platelet Count 233 K/uL (130-400); RDW Coefficient of Variation 12.5 % (11.5-14.5); RDW Standard Deviation 39.8 fL (36.4-46.3); Red Blood Count 4.96 M/uL (4.70-6.10); White Blood Count 13.25 K/ul (4.8-10.8)
[2023-02-28 07:29] LABS: BUN Creatinine Ratio 6.3 (10-20); Calcium 9.5 mg/dl (8.6-10.3); Creatinine Clr Calc Pharmacy 137.3 ml/min; Est GFR (African American) 124.2 ml/min; Est GFR (Non-African American) 107.1 ml/min; Potassium 3.9 mmol/L (3.5-5.1)
--- NOTE | 2023-02-28 08:16 | Hospitalist Progress Note ---
Date of Service February 28, 2023 Assessment & Plan (1) Diverticulitis: Plan: -Patient here with 1x1.6 cm pericolonic abscess due to sigmoid diverticulitis -WBC at 13.25 today, up from 11.34 yesterday but holding -Vitals are stable and patient afebrile -Abdomen is soft with improving LLQ to palpation; passing flatus and stool -Advance to solid diet for dinner today -Continue IV abx, analgesics, and antiemetics as needed -No acute surgical intervention indicated at this time, general surgery will follow. Appreciate recommendations. (2) Hypertension: Plan: -Continue home amlodipine (3) Constipation: Plan: -Avoiding laxatives at present due to acute diverticulitis -Consider initiation of bowel regimen as patient's acute flare resolves as patient reports chronic constipation Plan FENGI: Clear liquids Code status: Full DVT ppx: lovenox Isolation: None Admission and Anticipated Discharge Date Admission Date: February 25, 2023 Supervising Physician Co-Signing Physician Notes I personally examined the patient and verified all brock points of history and exam, discussed case, and agree with decision making with Eloisa Hwang MS2. Continues to feel better overall. Did have a little bit of loose stools. Eating liquid diet without any significant pain or problemsdoes have some intermittent crampy abdominal pain but does not relate to eating, it is not severe, and is very short-lived. Overall feels much better than whenever he came in. Vitals noted, in general he is awake and alert pleasant no distress. HEENT normocephalic atraumatic mucous membranes moist. Abdomen is soft mild distention at worst, left very lower almost suprapubic tenderness only no guarding rebound or rigidity, abdomen much softer and I can palpate much deeper than yesterday. Diverticulitis with abscessfortunately overall improving on antibiotics. Tolerating diet. Continue conservative care, antibiotics, serial exams. Discussed ongoing care even after out of the hospital. Discussed being off work for now, offered to complete paperwork if needed. Otherwise as above. Subjective Mark feels that his abdominal pain is improved from yesterday. Has had about 15 bowel movements in the last 12 hours and feels some minor bloating and cramping. Stool is mostly liquid. No nausea/vomiting. Patient still has an appetite. Review of Systems Review of Systems: All systems reviewed & are unremarkable except as noted in HPI & below Physical Exam Physical Exam: Constitutional: No acute distress. HEENT: Moist mucous membranes. CV: Regular rate and rhythm, no murmurs/rubs/gallops. Resp: Lungs clear to auscultation bilaterally, no wheezes/rales/rhonchi appreciated, no increased work of breathing GI: soft, nondistended, mild LLQ tenderness Neuro: alert and oriented x3 Results & Data Results & Data Vital Signs (Past 12 Hours) Vital Signs Temp Pulse Resp BP Pulse Ox O2 Del Method 02/28/23 08:06 36.7 C 77 16 139/91 97 Room Air 02/27/23 21:00 37.3 C 86 16 152/82 H 94 Room Air
--- NOTE | 2023-02-28 10:56 | Surgery Progress Note ---
This patient was seen and examined with the surgical PA. Remains HD stable, afebrile. He denies any abdominal pain and can only illicit discomfort with deep palpation. Denies N/V, tolerating clears, passing gas and started having loose bowel movements yesterday. Will F/U am labs Date of Service February 28, 2023 Assessment & Plan (1) Diverticulitis: Plan Patient here with diverticulitis with abscess WBC up a little from yesterday 13(11). Vitals are stable and patient afebrile Abdomen is soft with stable LLQ/suprapubic discomfort. He is passing flatus along with loose stools Likely continue on clear liquids today yet and will f/u on WBC tomorrow AM Continue IV abx while in house and supportive care No acute surgical intervention indicated at this time, will follow Admission and Anticipated Discharge Date Admission Date: February 25, 2023 Subjective Patient still with LLQ pain that is stable from yesterday. He is tolerating clears without nausea/vomiting, notices some rumbling in lower abdomen when drinking. He is passing flatus along with loose stools. Physical Exam Physical Exam: awake/alert, no distress Respiratory: normal respiratory effort Gastrointestinal (Abdomen): Inspection/Auscultation: abdomen not distended Percussion/Palpation: + abdomen tender (some LLQ/suprapubic discomfort noted to palpation) and abdomen soft Results & Data Vital Signs (Past 12 Hours) Vital Signs Temp Pulse Resp BP Pulse Ox O2 Del Method 02/28/23 08:06 36.7 C 77 16 139/91 97 Room Air PG Care Time/CCT Total # of Minutes Spent Total Time Spent with Patient: Total time spent is greater than 50% in coordination of care (as documented) at patient's floor/unit and/or counseling patient: Coding Level of Care Code 78612 SUB INP/OBS CARE 11/02MIN Diagnoses Diverticulitis K57.92
[2023-02-28] MEDS: ENOXAPARIN INJ 40 MG/0.4 ML SYR SQ SCH (17:46)
--- NOTE | 2023-02-28 18:16 | Billing Data ---
Date of Service February 28, 2023 Coding Level of Care Code 43100 SUB INP/OBS CARE
[2023-03-01] MEDS: AMPICILLIN/SULBACTAM SOD 3,000 MG in 0.9 % SODIUM CHLORIDE 100 ML IV SCH ×2 (05:12→12:20)
[2023-03-01 08:23] LABS: Basophils # (auto) 0.05 K/uL (0-0.2); Basophils % (auto) 0.5 %; Eosinophils # (auto) 0.16 K/uL (0-0.50); Eosinophils % (auto) 1.4 %; Hematocrit (blood only) 44.9 % (42.0-52.0); Hemoglobin 15.2 g/dl (14.0-18.0); Immature Granulocytes # (auto) 0.11 K/uL (0.01-0.20); Lymphocytes # (auto) 1.52 K/uL (1.2-3.4); Lymphocytes % (auto) 13.8 %; Mean Corpuscular Hemoglobin 29.9 pg (25.0-34.0); Mean Corpuscular Hgb Conc 33.9 g/dL (32.0-36.0); Mean Corpuscular Volume 88.4 fL (80.0-100.0); Mean Platelet Volume 11.1 fL (9.4-12.4); Monocytes # (auto) 1.23 K/uL (0.11-0.59); Monocytes % (auto) 11.1 %; Neutrophils # (auto) 7.98 K/uL (1.40-6.50); Neutrophils % (auto) 72.2 %; Platelet Count 243 K/uL (130-400); RDW Coefficient of Variation 12.5 % (11.5-14.5); RDW Standard Deviation 41.1 fL (36.4-46.3); Red Blood Count 5.08 M/uL (4.70-6.10); White Blood Count 11.05 K/ul (4.8-10.8)
[2023-03-01 08:37] LABS: BUN Creatinine Ratio 6.3 (10-20); Calcium 9.6 mg/dl (8.6-10.3); Est GFR (African American) 124.8 ml/min; Est GFR (Non-African American) 107.7 ml/min; Potassium 3.6 mmol/L (3.5-5.1)
--- NOTE | 2023-03-01 08:41 | Discharge Summary ---
Date of Service March 01, 2023 Admission HPI Per Admitting Provider Pt is 47 yo M with significant FMH of diverticulitis, PMH colonic polyp, HTN presenting with abdominal pain. Pt reports onset of LLQ abdominal pain 1 week prior which has spread across abdomen to RLQ and worsened in severity since onset. Associated nausea without emesis, though reduced PO intake. Reports subjective fevers and chills. States he has not had a BM in over 1 week. He does report history of diverticulitis in multiple family members and did have colonic polyp removed on colonoscopy in 07/2022. Pt arrived to ER hemodynamically stable. Initial evaluation significant for WBC 16, CTAP with sigmoid diverticulitis and noted 3.0 x 1.6 cm pericolonic abscess. ER interventions include Zosyn, morphine 6 mg IV, 1L NSS bolus x2. At present, pt reports ongoing abdominal pain with some relief from PRN medication. Denies any other complaints. Admission Exam Per Admitting Provider General: well-appearing, no acute distress HEENT: PERRL, EOMI, conjunctivae clear without injection, anicteric sclerae, moist mucous membranes, clear oropharynx without exudate or erythema Neck: supple, trachea midline, no thyromegaly, no JVD, no cervical lymphadenopathy CV: RRR, normal S1 and S2, no murmurs Resp: CTAB, no increased work of breathing, no crackles or wheezes Abd: Soft, +tender from RLQ/infraumbilical and LLQ (greatest), nondistended, no guarding or rebound, no hepatosplenomegaly, normal bowel sounds MSK: Normal bulk of all four extremities Neuro: AOx3, no focal motor or sensory deficits Skin: no rashes or lesions, warm and dry Ext: no LE peripheral edema or erythema, capillary refill <2s in all four extremities, 2+ LE peripheral pulses b/l Principal Diagnosis diverticulitis with abscess Discharge Exam Constitutional: No acute distress. HEENT: Moist mucous membranes. CV: Regular rate and rhythm, no murmurs/rubs/gallops. Resp: Lungs clear to auscultation bilaterally, no wheezes, rales, rhonchi. No increased work of breathing GI: soft, nondistended, mild mid-LLQ tenderness to palpation. No rebound or guarding. Neuro: alert and oriented to person, place, and time Discharge Data Allergies Allergy/AdvReac Type Severity Reaction Status Date / Time No Known Allergies Allergy Mild Verified 02/25/23 20:17 Consultations 02/25/23 20:07 ED Decision to Admit Stat Ordered Studies Abdomen/Pelvis CT 02/25/23 17:[address] WITH IV CONTRAST CT DOSE: 1091.77 mGy.cm HISTORY: Left lower quadrant abdominal pain. TECHNIQUE: Multiaxial CT images of the abdomen and pelvis were performed following the use of intravenous contrast. A dose lowering technique was utilized adhering to the principles of ALARA. COMPARISON STUDY: Abdomen and pelvis CT 06/03/2022. FINDINGS: The lung bases are clear. No acute fractures identified. There is a tiny fat-containing umbilical hernia. Hepatic steatosis again noted. There are 2 subcentimeter hypodense lesions within the left hepatic lobe. These are technically too small to characterize but favor cysts. The gallbladder, pancreas, spleen, and adrenal glands are unremarkable. The main portal vein is patent. Normal caliber abdominal aorta. No retroperitoneal or pelvic lymphadenopathy. A 3 mm hypodense lesion within the upper pole of the right kidney is also too small to characterize but statistically represents a cyst. The left kidney enhances normally. No hydronephrosis. Normal bladder. Trace pelvic free fluid. Focal thickening within the proximal to mid sigmoid colon with pericolonic fat stranding consistent with an acute diverticulitis. There is also a small focus of extraluminal gas and fluid adjacent to the area of thickened sigmoid colon best seen on image 294. This measures approximately 3.0 x 1.6 cm and is consistent with a small developing pericolonic abscess. This is not amenable to percutaneous drainage at this time. Multiple additional colonic diverticula are noted. No dilated loops of bowel to suggest an obstruction. Normal appendix. IMPRESSION: 1. Acute sigmoid diverticulitis with a 3.0 x 1.6 cm developing pericolonic abscess. 2. Follow-up colonoscopy should be considered once the diverticulitis has resolved to exclude the less likely possibility of an underlying colonic lesion. 3. Mild hepatic steatosis. ACT 112: Negative or not required by law. Electronically signed by: Ghassan Brooks M.D. 02/25/2023 7:38 PM Hospital Course (1) Diverticulitis: -Patient here with 3x1.6 cm pericolonic abscess due to sigmoid diverticulitis -WBC at 13.25 today, up from 11.34 yesterday but holding -Vitals are stable and patient afebrile -Abdomen is soft with improving LLQ to palpation; passing flatus and stool -Tolerating solid diet with no pain -Switch to PO Augmentin -No acute surgical intervention indicated at this time, follow up with general surgery outpatient (2) Hypertension: -Continue home dose of amlodipine, 5 mg PO daily (3) Constipation: -Avoiding laxatives at present due to acute diverticulitis -Consider initiation of bowel regimen as patient's acute flare resolves as patient reports chronic constipation Plan Mark is a 47 year old male who presented with abdominal pain due to diverticu litis and a diverticular abscess. Total Time Total Time Spent Total Time Spent (In Minutes): <30 Discharge Plan Discharge Items Patient Disposition: Home - Self-Care Reason For Visit: DIVERTICULITIS Discharge Diagnosis: Diverticulitis with diverticular abscess Activity: Resume your previous activity Non-emergency contact: Primary Care Provider Call non-emergency contact if: you have any medication questions, your symptoms worsen, your pain is worsening and you have a fever Follow-up/Referrals: Casandra Cm MD [Primary Care Provider] - 03/07/23 12:45 pm ([facility] [address] [address]) Nova Alanis, [Physician] - (You do not need to follow up with us in the office, you may call if you have any questions/concerns) Diet: Low Fiber Addtl Attending Provider Instructions: * You presented the the Emergency department with abdominal pain. You were found to have an elevated white blood cell count and sigmoid diverticulitis with a 3x1.6 cm pericolonic abscess on a CT scan of your abdomen and pelvis. While in the hospital, you were treated with pain medication, anti-nausea medication, and antibiotics. Over the course of your hospital stay, you transitioned from no oral intake to clear liquids, full liquids, and solid food. * While in the hospital, the general surgery team evaluated you for need of surgery. Please follow up with them within 2 weeks. * You will be discharged with 10 additional days of oral antibiotics, please f inish the entirety of the antibiotic. * Follow up with [facility] in less than 7 days. A CBC blood test will be ordered in the system. Please go to the [facility] lab before your appointment to get blood work. * If you experience severe abdominal pain, fever/chills, or are unable to tolerate eating and drinking please return to the emergency department. * * Please continue on a low fiber diet over the next few weeks until your bowels normalize Pending Studies at Discharge: No Stand-Alone Forms: My [facility], Work/School Release, Smoking Cessation Medications and DC Order Prescriptions: New amoxicillin-pot clavulanate 875-125 mg tablet 1 tab PO Q12H 11 Days Qty: 22 0RF Continued amlodipine 5 mg Tablet 5 mg PO QPM Discharge Orders: Discharge Order (Routine); Ordered 03/01/23 Ordered By: Elle Carreno/Other Patient Handouts: Low-Fiber Diet Admission Data Admit Date/Time: 02/25/23 22:25 Attending Provider: Mehrdad Tenorio Admit Provider: Georgia Bose Primary Care Provider: Casandra Cm Other Providers: Kevin Frausto Other Interventions: Discharge Summary Assessment (RN) Last Done: 03/01/23 13:02 Supervising Physician Co-Signing Physician Notes I personally examined the patient and verified all brock points of history and exam, discussed case, and agree with decision making with Eloisa Hwang MS2. Continues to feel better overall. Tolerating regular diet. Surgical team input greatly appreciated. Feels up to going home, outpatient follow-up with PCP scheduled, nurse navigator setting up outpatient follow-up with surgery. Vitals noted, in general he is awake and alert pleasant no distress. HEENT normocephalic atraumatic mucous membranes moist. Abdomen is soft mild distention at worst, left very lower almost suprapubic tenderness only no guarding rebound or rigidity, and even this is far less and far more small and focused than yesterdayoverall fairly benign abdominal exam Diverticulitis with abscessfortunately overall improving on antibiotics. Tolerating diet. Safe for hometreat for 14 total days of antibioticsfinish course with Augmentin. Close outpatient follow-up with serial exams, serial labs, and if any questionserial imaging. Would definitely want a follow not only while he is on the antibiotics but also for 1-2 weeks after antibiotics have been stopped. Safe/stable for home, otherwise as above
--- NOTE | 2023-03-01 11:26 | Surgery Progress Note ---
I have seen and examined this patient this am with the surgical PA. I agree with this plan. Date of Service March 01, 2023 Assessment & Plan (1) Diverticulitis: Plan: Patient here with diverticulitis with abscess WBC down to 11 (13). Vitals are stable and patient afebrile Abdomen is soft with improving LLQ/suprapubic discomfort. He is passing flatus along with loose stools His diet was advanced of which he is tolerating well without worsening symptoms Plan to transition to course of oral abx for home He recently underwent colonoscopy, so no need for repeat until his next regularly scheduled one He may be discharged to home from our standpoint today Admission and Anticipated Discharge Date Admission Date: February 25, 2023 Subjective Patient is feeling well. Tolerating a low fiber diet. No nausea/vomiting or worsening abdominal pain. he is passing flatus and continues to have loose BMs. Physical Exam Physical Exam: awake/alert Gastrointestinal (Abdomen): Inspection/Auscultation: abdomen not distended Percussion/Palpation: + abdomen tender (improving LLQ/suprapubic discomfort) and abdomen soft Results & Data Vital Signs (Past 12 Hours) Vital Signs Temp Pulse Resp BP Pulse Ox O2 Del Method 03/01/23 07:33 36.3 C L 73 18 109/72 97 Room Air PG Care Time/CCT Total # of Minutes Spent Total Time Spent with Patient: Total time spent is greater than 50% in coordination of care (as documented) at patient's floor/unit and/or counseling patient: Coding Level of Care Code 83529 SUB INP/OBS CARE 11/02MIN Diagnoses Diverticulitis K57.92
--- NOTE | 2023-03-01 19:27 | Billing Data ---
Date of Service March 01, 2023 Coding Level of Care Code 24801 IN/OBS DISCH 30 MIN/LESS
== END 2023-03-01 13:49 | disposition home or self-care (01) | DRG 392 ==
LOC: ED 16:51 → SUATTDRO 22:25 → 3N 22:25